=== PATIENT | female | born 1945 | race Caucasian/White ===

== ENCOUNTER → 2017-04-04 | Outpatient (CLI) | payer OTHER, BC ==
[~2017-04-04] MED LIST: ASPI81TA28 PO; CHOL100010 PO; FLUO10CA48 PO; GLC/500 PO; LISI-461 PO; MULT-506 PO; NRN/300 PO
[2017-04-04 12:54] LABS: BLOOD UREA NITROGEN 23 mg/dl (7-18); CREATININE 0.76 mg/dl (0.60-1.20)
== END | disposition home or self-care (01) ==
LOC: C.LABBFT 08:13
PROVIDERS: ATTEND Physician Assistant
DX: H91.8X1 Other specified hearing loss, right ear (principal)

== ENCOUNTER → 2017-04-06 | Outpatient (CLI) | payer OTHER, BC ==
[~2017-04-06] MED LIST changes: +GADAVIST IV PRN
--- NOTE | 2017-04-06 12:28 | DIAGNOSTIC IMAGING REPORT ---
BRAIN COMBO FOR IAC CLINICAL HISTORY: Right-sided asymmetrical sensorineural hearing loss. COMPARISON STUDY: No previous studies for comparison. TECHNIQUE: Utilizing a 0.7 Faye open magnet, multiplanar, multi echo imaging of the brain was performed with thin cut imaging through the internal auditory canals pre and post contrast administration. Injection of 8 cc of Gadavist IV was uneventful. FINDINGS: There are no areas of restricted diffusion. No acute intracranial hemorrhage, midline shift or mass effect is present. Brain volume is normal for age. Ventricular system is normal. Basilar cisterns are patent. Flow-voids for the major intracranial vessels are present. There is no intracranial masses or pathologic enhancement. There are no abnormalities within the internal auditory canals. Semicircular canals appear intact. There is no fluid within the mastoid air cells. There is a mucous retention cyst within the right maxillary sinus. Mild white matter T2 hyperintense foci suggest small vessel disease. Calvarial signal is normal. IMPRESSION: 1. No acute intracranial findings. 2. No abnormalities within the internal auditory canals. 3. No intracranial masses or pathologic enhancement. 4. Mild small vessel disease. Electronically signed by: Joey Wei M.D. 04/06/2017 12:27 PM Dictated Date/Time: 04/06/2017 12:23 PM
== END | disposition home or self-care (01) ==
LOC: C.OPENMRI 10:50
PROVIDERS: ATTEND Physician Assistant
DX: H91.8X1 Other specified hearing loss, right ear (principal)

== ENCOUNTER → 2017-04-28 | Outpatient (CLI) | payer OTHER, BC ==
[~2017-04-28] MED LIST changes: -GADAVIST IV PRN
[2017-04-28 12:22] LABS: ESTIMATED AVERAGE GLUCOSE 157 mg/dl; HA1C FLAG Normal (Normal)
[2017-04-28 12:37] LABS: CALCIUM 9.5 mg/dl (8.5-10.1)
[2017-04-28 12:40] LABS: ALT/SGPT 31 U/L (12-78); BLOOD UREA NITROGEN 30 mg/dl (7-18); BUN/CREATININE RATIO 39.3 (10-20); CARBON DIOXIDE 25 mmol/L (21-32); CHLORIDE 104 mmol/L (98-107); CHOLESTEROL 132 mg/dl (0-200); CREATININE 0.76 mg/dl (0.60-1.20); GLUCOSE 160 mg/dl (70-99); POTASSIUM 4.7 mmol/L (3.5-5.1); SODIUM 139 mmol/L (136-145); TRIGLYCERIDES 211 mg/dl (0-150); VERY LOW DENSITY LIPOPROT CALC 42 mg/dl
[2017-04-28 12:44] LABS: ALB/GLOB RATIO 1.1 (0.9-2); ALKALINE PHOSPHATASE 62 U/L (45-117); AST/SGOT 18 U/L (15-37); CHOLESTEROL/HDL RATIO 3.4; HDL CHOLESTEROL 39 mg/dl; LDL CHOLESTEROL CALCULATED 51 mg/dl
== END | disposition home or self-care (01) ==
LOC: C.LABBFT 08:06
PROVIDERS: ATTEND Family Medicine
DX: E11.9 Type 2 diabetes mellitus without complications (principal)

== ENCOUNTER → 2017-08-02 | Outpatient (CLI) | payer OTHER, BC ==
[~2017-08-02] MED LIST changes: -FLUO10CA48 PO; -LISI-461 PO
--- NOTE | 2017-08-02 08:23 | DIAGNOSTIC IMAGING REPORT ---
RIGHT PELVIS UNILATERAL HIP 1 VIEW CLINICAL HISTORY: RIGHT HIP PAIN Right COMPARISON STUDY: None. FINDINGS: No fracture or dislocation within the pelvis or hips. The visual signal appears intact. Cartilage spaces are maintained for age. Soft tissues are unremarkable. IMPRESSION: No fracture or dislocation within the pelvis or hips. Electronically signed by: Salvatore Wetzel M.D. 08/02/2017 8:21 AM Dictated Date/Time: 08/02/2017 8:18 AM
== END | disposition home or self-care (01) ==
LOC: C.RDSM 08:30
PROVIDERS: ATTEND Physician Assistant
DX: R52 Pain, unspecified (principal)

== ENCOUNTER → 2017-08-30 | Outpatient (CLI) | payer OTHER, BC ==
--- NOTE | 2017-08-30 11:49 | DIAGNOSTIC IMAGING REPORT ---
LUMBAR SPINE MIN 4 VIEWS HISTORY: 72 years-old Female LBP chronic low back pain with radicular symptoms. No reported trauma. COMPARISON: Lumbar spine MRI 01/06/2010 TECHNIQUE: 5 views of the lumbar spine FINDINGS: There is mild convex left curvature of the lumbar spine. There are 5 lumbar-type vertebral segments present. The bones are mildly demineralized. No acute compression deformity, acute fracture or subluxation identified. Moderate to severe intervertebral disc space narrowing is noted at L4-L5, L2-L3 and T11-T12, progressed from prior study dated 01/06/2010. Additional multilevel intervertebral disc space narrowing, endplate spurring and facet arthropathy is noted. Severe facet arthrosis involves the lower lumbar spine. There is atherosclerosis of the aorta. Soft tissues are unremarkable. IMPRESSION: 1. No acute fracture or subluxation of the lumbar spine. 2. Progressive degenerative changes about the lower lumbar spine as above with severe lower lumbar spine facet arthropathy and multilevel intervertebral disc space narrowing. The above report was generated using voice recognition software. It may contain grammatical, syntax or spelling errors. Electronically signed by: Spencer Little M.D. 08/30/2017 11:48 AM Dictated Date/Time: 08/30/2017 11:45 AM
== END | disposition home or self-care (01) ==
LOC: C.RDSM 10:32
PROVIDERS: ATTEND Physician Assistant
DX: M53.3 Sacrococcygeal disorders, not elsewhere classified (principal); M54.17 Radiculopathy, lumbosacral region; M51.36 Other intervertebral disc degeneration, lumbar region; M12.9 Arthropathy, unspecified

== ENCOUNTER → 2017-10-07 | Outpatient (CLI) | payer OTHER, BC ==
[2017-10-07 16:43] LABS: BASO % 0.4 %; BASO ABS # 0.04 K/uL (0-0.2); COMPLETE YES; EOS % 2.3 %; HEMATOCRIT 41.6 % (37-47); IG% 0.1 %; LYMPH % 26.3 %; LYMPH ABS # 2.43 K/uL (1.2-3.4); MEAN CELL VOLUME 87.8 fL (80-100); MEAN CORPUSCULAR HEMOGLOBIN 29.1 pg (25-34); MEAN CORPUSCULAR HGB CONC 33.2 g/dl (32-36); MEAN PLATELET VOLUME 9.5 fL (7.4-10.4); NEUT % 65.9 %; PLATELET COUNT 710 K/uL (130-400); RED BLOOD COUNT 4.74 M/uL (4.2-5.4); WHITE BLOOD COUNT 9.23 K/uL (4.8-10.8)
[2017-10-07 17:20] LABS: BLOOD UREA NITROGEN 17 mg/dl (7-18); CARBON DIOXIDE 24 mmol/L (21-32); CHLORIDE 109 mmol/L (98-107); CREATININE 0.72 mg/dl (0.60-1.20); GLUCOSE 123 mg/dl (70-99); POTASSIUM 4.8 mmol/L (3.5-5.1); SODIUM 137 mmol/L (136-145)
== END | disposition home or self-care (01) ==
LOC: C.LABBFT 15:10
PROVIDERS: ATTEND Internal Medicine
DX: Z00.00 Encounter for general adult medical examination without abnormal findings (principal); I10 Essential (primary) hypertension; D47.3 Essential (hemorrhagic) thrombocythemia

== ENCOUNTER 2017-10-17 21:14 | Emergency (ER) | payer OTHER, BC ==
[~2017-10-17] VITALS: Ht 162.6 cm; Wt 81.2 kg
[2017-10-17 21:19] VITALS: TEMP 36.8; Ht 162.6 cm; Wt 81.2 kg
[2017-10-17] MEDS ORDERED: GI COCKTAIL PO STA (21:40)
[2017-10-17] MEDS ORDERED: LORAZEPAM 1 MG TAB PO STA (21:40)
--- NOTE | 2017-10-17 21:40 | EMERGENCY ROOM VISIT NOTE ---
History Report prepared by Sai: Ashok York Under the Supervision of: Dr. Agustin Jensen M.D. First contact with patient: 21:25 Chief Complaint: NAUSEA Stated Complaint: NAUSEA,BURNING CHEST Nursing Triage Summary: pt reports feeling nauseated since eating dinner , reports after resting nausea remains and now has a burning sensation in chest recent dx of low platlets History of Present Illness The patient is a 72 year old female with a past medical history of increased platelets, anxiety, and type II diabetes, who presents to the ED with a cc of constant chest pain beginning a few hours ago. Positive for nausea and SOB. Negative for leg swelling, vomiting, and long recent travel. The patient states that she began feeling nauseous after eating a dinner of chicken salad and potatoes. She notes that after eating, she reclined in a chair and napped for a half hour. When she woke up, she reports feeling like the inside of her chest was burning and on fire. She notes that after she woke up, she had an anxiety attack. She denies any previous history of heart and lung problems. She reports that she did not take any medication at home, but states that her symptoms have improved slightly. Source of History: patient Onset: a few hour ago Position: chest Quality: burning Timing: constant Associated Symptoms: + SOB, + nausea, No vomiting Note: She denies any leg swelling. Review of Systems See HPI for pertinent positives and negatives. A total of ten systems were reviewed and were otherwise negative. Past Medical & Surgical Medical Problems: (1) Anxiety (2) Increased platelet count (3) Type 2 diabetes mellitus Family History No pertinent family history stated. Social History Smoking Status: Never Smoker Marital Status: Occupation Status: retired Current/Historical Medications Scheduled Cholecalciferol (Vitamin D), 2,000 INTER.UNIT PO DAILY Fluoxetine (Prozac), 10 MG PO DAILY Gabapentin (Neurontin), 300 MG PO TID Lisinopril (Zestril), 10 MG PO DAILY Metformin Hcl (Glucophage), 500 MG PO BID Multivitamin (Multivitamin), 1 TAB PO DAILY Allergies Coded Allergies: No Known Allergies (Verified , 12/25/14) Physical Exam Vital Signs Date Time Temp Pulse Resp B/P (MAP) Pulse Ox O2 Delivery O2 Flow Rate FiO2 10/18/17 00:15 94 Room Air 10/18/17 00:14 98 24 10/18/17 00:01 148/90 10/17/17 23:14 91 16 93 10/17/17 23:01 132/84 10/17/17 22:32 125/72 10/17/17 22:14 94 13 10/17/17 22:08 96 10/17/17 22:06 95 18 151/82 95 Room Air 10/17/17 22:02 151/82 10/17/17 21:45 95 Room Air 10/17/17 21:19 36.8 121 20 197/95 97 Room Air Physical Exam GENERAL: Awake, alert, well-appearing, NAD HENT: Normocephalic, atraumatic. EYES: Normal conjunctiva. Sclera non-icteric. NECK: Supple. No nuchal rigidity. FROM. RESPIRATORY: CTAB, no rhonchi, wheezing, crackles CARDIAC: Tachycardic and irregular, no MRG CHEST: No reproducible chest wall tenderness to palpation. ABDOMEN: Soft, NTND, BS+ LOWER EXTREMITIES: No calf pain, negative Mancini's sign. MSK: No chest wall TTP, no LE edema NEURO: GCS 15, CN 2-12 intact, moves all 4s on command SKIN: No rash or jaundice noted. Medical Decision & Procedures ER Provider Diagnostic Interpretation: Radiology results as stated below per my review and radiologist interpretation: CHEST ONE VIEW PORTABLE FINDINGS: The bones soft tissues and hemidiaphragms are normal. The cardiomediastinal silhouette is normal. The lungs are clear. The pulmonary vasculature is normal. IMPRESSION: Negative chest. The above report was generated using voice recognition software. It may contain grammatical, syntax or spelling errors. Electronically signed by: Torey Higuera M.D. 10/17/2017 10:01 PM Laboratory Results 10/17/17 21:47 Red Blood Count 4.57, Mean Corpuscular Volume 87.7, Mean Corpuscular Hemoglobin 29.5, Mean Corpuscular Hemoglobin Concent 33.7, Mean Platelet Volume 9.4, Neutrophils (%) (Auto) 64.2, Lymphocytes (%) (Auto) 25.8, Monocytes (%) (Auto) 6.4, Eosinophils (%) (Auto) 2.8, Basophils (%) (Auto) 0.5, Neutrophils # (Auto) 6.38, Lymphocytes # (Auto) 2.57, Monocytes # (Auto) 0.64, Eosinophils # (Auto) 0.28, Basophils # (Auto) 0.05 10/17/17 21:47 Test 10/17/17 21:47 10/17/17 23:59 White Blood Count 9.95 K/uL (4.8-10.8) Red Blood Count 4.57 M/uL (4.2-5.4) Hemoglobin 13.5 g/dL (12.0-16.0) Hematocrit 40.1 % (37-47) Mean Corpuscular Volume 87.7 fL (80-100) Mean Corpuscular Hemoglobin 29.5 pg (25-34) Mean Corpuscular Hemoglobin Concent 33.7 g/dl (32-36) Platelet Count 609 K/uL (130-400) Mean Platelet Volume 9.4 fL (7.4-10.4) Neutrophils (%) (Auto) 64.2 % Lymphocytes (%) (Auto) 25.8 % Monocytes (%) (Auto) 6.4 % Eosinophils (%) (Auto) 2.8 % Basophils (%) (Auto) 0.5 % Neutrophils # (Auto) 6.38 K/uL (1.4-6.5) Lymphocytes # (Auto) 2.57 K/uL (1.2-3.4) Monocytes # (Auto) 0.64 K/uL (0.11-0.59) Eosinophils # (Auto) 0.28 K/uL (0-0.5) Basophils # (Auto) 0.05 K/uL (0-0.2) RDW Standard Deviation 42.5 fL (36.4-46.3) RDW Coefficient of Variation 13.2 % (11.5-14.5) Immature Granulocyte % (Auto) 0.3 % Immature Granulocyte # (Auto) 0.03 K/uL (0.00-0.02) Prothrombin Time 10.5 SECONDS (9.0-12.0) Prothromb Time International Ratio 1.0 (0.9-1.1) Activated Partial Thromboplast Time 29.9 SECONDS (21.0-31.0) Partial Thromboplastin Ratio 1.2 Anion Gap 12.0 mmol/L (3-11) Est Creatinine Clear Calc Drug Dose 50.9 ml/min Estimated GFR () 64.3 Estimated GFR (Non- 55.5 BUN/Creatinine Ratio 26.7 (10-20) Calcium Level 9.1 mg/dl (8.5-10.1) Total Bilirubin 0.6 mg/dl (0.2-1) Direct Bilirubin 0.1 mg/dl (0-0.2) Aspartate Amino Transf (AST/SGOT) 13 U/L (15-37) Alanine Aminotransferase (ALT/SGPT) 23 U/L (12-78) Alkaline Phosphatase 64 U/L (45-117) Total Protein 6.8 gm/dl (6.4-8.2) Albumin 3.7 gm/dl (3.4-5.0) Lipase 46 U/L (73-393) Troponin I < 0.015 ng/ml (0-0.045) Laboratory results reviewed by me Medications Administered Medications (Trade) Dose Ordered Sig/Sheri Route Start Time Stop Time Status Last Admin Dose Admin Lorazepam (Ativan Tab) 1 mg NOW STAT PO 10/17/17 21:40 10/17/17 21:42 DC 10/17/17 21:58 1 MG Famotidine (Pepcid Tab) 20 mg NOW ONCE PO 10/17/17 21:45 10/17/17 21:46 DC 10/17/17 21:58 20 MG Ondansetron HCl (Zofran Inj) 4 mg NOW STAT IV 10/17/17 21:45 10/17/17 21:46 DC 10/17/17 21:57 4 MG Lidocaine HCl (Viscous Lidocaine 2% Soln) 20 ml STK-MED ONCE .ROUTE 10/17/17 21:53 10/17/17 21:54 DC 10/17/17 21:57 20 ML Al Hydroxide/Mg Hydroxide (Maalox Susp) 30 ml STK-MED ONCE .ROUTE 10/17/17 21:54 10/17/17 21:55 DC 10/17/17 21:57 30 ML ECG Indication: nausea Rate (beats per minute): 115 Rhythm: sinus tachycardia Findings: no ectopy, other (Normal intervals, normal axis, no STS or TWI) ED Course 2129: The patient was evaluated in room C7. A complete history and physical exam was performed. 2233: I reevaluated and updated the patient. She feels better and is good with the treatment plan. 0045: I reevaluated the patient. Discussed results and discharge instructions: She verbalized understanding and agreement. The patient is ready for discharge. Medical Decision The patient is a 72 year old female with a past medical history of increased platelets, anxiety, and type II diabetes, who presents to the ED with a cc of constant chest pain beginning a few hours ago. Positive for nausea and SOB. Negative for leg swelling, vomiting, and long recent travel. Differential diagnosis: Etiologies such as cardiac ischemia, aortic dissection, pulmonary embolism, pneumonia, pneumothorax, musculoskeletal, infections, pericarditis, myocarditis , esophageal rupture, gastrointestinal, as well as others were entertained. Patient was seen and evaluated the bedside. The patient she said some nausea meds been ongoing since she was napping after eating this evening. Patient states that she was in a reclined position but not fully flat she was in a reclining chair. Patient does complain of some shortness of breath she states she believes is related to her anxiety she is very worried about her recent diagnosis of thrombocytosis for which she takes a baby aspirin. Patient's chest pain is described as burning and does not radiate does not have any associated nausea or vomiting. It is not exertional in nature. Patient does not have any prior history of DC or lung disease. Patient denies history of DVT or PE. No recent plane or car travel. Patient has no lower extremity swelling or pain. Patient did have blood work, EKG, troponin, chest x-ray and symptomatically treatment. I did reassess the patient and her tachycardia completely resolved without any fluids. Given this and her history and physical even though she does have a Wells of 1 this was to make her very low risk for PE and do not believe it is warranted given there is likely an anxiety component. Patient's EKG is nonischemic and her present history of chest pain is not very concerning. However, given her age and the possibility of atypical type symptoms she did have a repeat troponin that was drawn 4 hours after symptoms. Patient states that her burning chest pain had resolved. Her repeat troponin was negative. Patient was able to walk without any exertional chest pain. Patient was given strict follow-up and return precautions. Patient was agreeable and amenable to outpatient follow-up and treatment. All cautions were answered. Patient was given strict follow-up, discharge, and return precautions. All questions were answered. Patient was deemed suitable for outpatient follow-up at this time. Patient agreed with the plan of care and was safely discharged home. Medication Reconcilliation Current Medication List: was personally reviewed by me Blood Pressure Screening Patient's blood pressure: Elevated blood pressure Blood pressure disposition: Elevated BP felt to be situational Impression Primary Impression: Anxiety Additional Impressions: Increased platelet count GERD (gastroesophageal reflux disease) Chest pain, unspecified Scribe Attestation The scribe's documentation has been prepared under my direction and personally reviewed by me in its entirety. I confirm that the note above accurately reflects all work, treatment, procedures, and medical decision making performed by me. Departure Information Dispostion Home / Self-Care Referrals Amanda Tracy D.O. (PCP) Forms HOME CARE DOCUMENTATION FORM, IMPORTANT VISIT INFORMATION Patient Instructions Anxiety Body Response, Anxiety Disorder, ED GERD, My [facility] Additional Instructions Please return to the emergency department if you have worsening or recurrent symptoms not amenable to at-home treatment. Please call for a follow-up appointment with her primary care physician. Please take your medications as prescribed. If you have other concerns and/or complaints please feel free to also call your primary care physician's office or return the ED for further evaluation, management, and treatment. You may take 400 mg Ibuprofen every 6 hours as needed for pain with food for no more than 2 consecutive days. You may take tylenol 650 mg every 6 hours as needed for pain. You may take motrin and tylenol separately or at the same time. Take your medications as prescribed. You have been examined and treated today on an emergency basis only. This is not a substitute for, or an effort to provide, complete comprehensive medical care. It is impossible to recognize and treat all injuries or illnesses in a single emergency department visit. It is therefore important that you follow up closely with [facility], your PCP, and/or your specialist(s). Call as soon as possible for an appointment. Thank you for your time and consideration. I look forward to speaking with you again soon. Please don't hesitate to call us if you have any questions. Problem Qualifiers Additional Impressions: GERD (gastroesophageal reflux disease) Esophagitis presence: esophagitis presence not specified Qualified Codes: K21.9 - Gastro-esophageal reflux disease without esophagitis
[2017-10-17 21:45] VITALS: O2SAT 95
[2017-10-17] MEDS ORDERED: FAMOTIDINE 20 MG TAB PO ONE (21:45)
[2017-10-17] MEDS ORDERED: ONDANSETRON INJ 2 MG/ML 2 ML VIAL IV STA (21:45)
[2017-10-17] MEDS ORDERED: LIDOCAINE HCL 2% VISC SOLN 20 ML UDC ONE (21:53)
[2017-10-17] MEDS ORDERED: ALUMINUM/MAGNESIUM SUSP 30 ML UDC ONE (21:54)
--- NOTE | 2017-10-17 22:02 | DIAGNOSTIC IMAGING REPORT ---
CHEST ONE VIEW PORTABLE CLINICAL HISTORY: CHEST PAIN dyspnea COMPARISON STUDY: 07/24/2013 FINDINGS: The bones soft tissues and hemidiaphragms are normal. The cardiomediastinal silhouette is normal. The lungs are clear. The pulmonary vasculature is normal. IMPRESSION: Negative chest. The above report was generated using voice recognition software. It may contain grammatical, syntax or spelling errors. Electronically signed by: Torey Higuera M.D. 10/17/2017 10:01 PM Dictated Date/Time: 10/17/2017 10:00 PM
[2017-10-17 22:03] LABS: BASO % 0.5 %; BASO ABS # 0.05 K/uL (0-0.2); COMPLETE YES; EOS % 2.8 %; HEMATOCRIT 40.1 % (37-47); IG% 0.3 %; LYMPH % 25.8 %; LYMPH ABS # 2.57 K/uL (1.2-3.4); MEAN CELL VOLUME 87.7 fL (80-100); MEAN CORPUSCULAR HEMOGLOBIN 29.5 pg (25-34); MEAN CORPUSCULAR HGB CONC 33.7 g/dl (32-36); MEAN PLATELET VOLUME 9.4 fL (7.4-10.4); MONO % 6.4 %; NEUT % 64.2 %; PLATELET COUNT 609 K/uL (130-400); RED BLOOD COUNT 4.57 M/uL (4.2-5.4); WHITE BLOOD COUNT 9.95 K/uL (4.8-10.8)
[2017-10-17] MEDS ORDERED: LISI-461 PO (22:08)
[2017-10-17] MEDS ORDERED: FLUO10CA48 PO (22:10)
[2017-10-17 22:13] LABS: PARTIAL THROMBOPLASTIN RATIO 1.2; PROTHROMBIN TIME (PATIENT) 10.5 SECONDS (9.0-12.0)
[2017-10-17 22:19] LABS: ALT/SGPT 23 U/L (12-78); AST/SGOT 13 U/L (15-37); BLOOD UREA NITROGEN 27 mg/dl (7-18); BUN/CREATININE RATIO 26.7 (10-20); CALCIUM 9.1 mg/dl (8.5-10.1); CARBON DIOXIDE 22 mmol/L (21-32); CHLORIDE 100 mmol/L (98-107); GLUCOSE 181 mg/dl (70-99); POTASSIUM 4.5 mmol/L (3.5-5.1); SODIUM 134 mmol/L (136-145)
[2017-10-17 22:23] LABS: ALKALINE PHOSPHATASE 64 U/L (45-117)
[2017-10-18 00:49] VITALS: BP 125/88; PULSE 94; O2SAT 98
== END 2017-10-18 00:51 | disposition home or self-care (01) ==
LOC: C.EDB 21:16 → C.EDC 10-18 00:51
DX: F41.9 Anxiety disorder, unspecified (principal); D47.3 Essential (hemorrhagic) thrombocythemia; K21.9 Gastro-esophageal reflux disease without esophagitis; R07.9 Chest pain, unspecified; E11.9 Type 2 diabetes mellitus without complications; Z79.4 Long term (current) use of insulin; Z79.899 Other long term (current) drug therapy

== ENCOUNTER → 2018-02-06 | Outpatient (CLI) | payer OTHER, BC ==
[~2018-02-06] MED LIST changes: -ASPI81TA28 PO; +FLUO10CA48 PO; +LISI-461 PO
--- NOTE | 2018-02-06 11:12 | DIAGNOSTIC IMAGING REPORT ---
R FOOT MIN 3 VIEWS CLINICAL HISTORY: PLANTAR PAIN 1ST MTP pain COMPARISON: None. DISCUSSION: The bones and joint spaces appear intact. There is no evidence of fracture, dislocation or bony disease. There is no evidence for soft tissue swelling. IMPRESSION: Negative study. The above report was generated using voice recognition software. It may contain grammatical, syntax or spelling errors. Electronically signed by: Torey Higuera M.D. 02/06/2018 11:10 AM Dictated Date/Time: 02/06/2018 11:09 AM
== END | disposition home or self-care (01) ==
LOC: C.RDSM 09:50
PROVIDERS: ATTEND Physician Assistant
DX: M79.674 Pain in right toe(s) (principal)

== ENCOUNTER → 2018-02-27 | Outpatient (CLI) | payer OTHER, BC ==
--- NOTE | 2018-02-28 07:47 | MAMMOGRAPHY REPORT ---
BILATERAL DIGITAL SCREENING MAMMOGRAM TOMOSYNTHESIS WITH CAD: 02/27/2018 CLINICAL HISTORY: Routine screening. TECHNIQUE: Breast tomosynthesis in addition to standard 2D mammography was performed. Current study was also evaluated with a Computer Aided Detection (CAD) system. COMPARISON: Comparison is made to exams dated: 10/11/2016 mammogram, 10/08/2015 mammogram, 4 mammogram, 10/04/2013 mammogram, 10/03/2012 mammogram, and 09/27/2011 mammogram - [facility]. BREAST COMPOSITION: There are scattered areas of fibroglandular density in both breasts. FINDINGS: There are mild vascular calcifications in both breasts. No suspicious mass, architectural distortion or cluster of microcalcifications is seen. IMPRESSION: ACR BI-RADS CATEGORY 2: BENIGN There is no mammographic evidence of malignancy. A 1 year screening mammogram is recommended. The pa tient will receive written notification of the results. Approximately 10% of breast cancers are not detected with mammography. A negative mammographic report should not delay biopsy if a clinically suggestive mass is present. Megan Matthews M.D. ay/:02/27/2018 15:09:59 Cloth Opener Hand: Anuradha BURR(Gaurav)([place]), [facility] letter sent: Normal 1/2 BI-RADS Code: ACR BI-RADS Category 2: Benign
== END | disposition home or self-care (01) ==
LOC: C.MAMM 14:03
PROVIDERS: ATTEND Internal Medicine
DX: Z12.31 Encounter for screening mammogram for malignant neoplasm of breast (principal)

== ENCOUNTER → 2018-04-05 | Outpatient (CLI) | payer OTHER, BC ==
[~2018-04-05] MED LIST changes: +ASPCH81X PO; -CHOL100010 PO; +CHOL20009 PO; +CRS/10 PO; -FLUO10CA48 PO; +MELO-84 PO
[2018-04-05 12:25] LABS: ALBUMIN 3.6 gm/dl (3.4-5.0); ALT/SGPT 29 U/L (12-78); AST/SGOT 15 U/L (15-37); BLOOD UREA NITROGEN 30 mg/dl (7-18); CALCIUM 8.6 mg/dl (8.5-10.1); CARBON DIOXIDE 27 mmol/L (21-32); CREATININE 0.85 mg/dl (0.60-1.20); GLUCOSE 141 mg/dl (70-99); POTASSIUM 4.6 mmol/L (3.5-5.1); SODIUM 137 mmol/L (136-145)
[2018-04-05 12:26] LABS: HEMOGLOBIN A1C 6.9 % (4.5-5.6)
[2018-04-05 12:27] LABS: ALKALINE PHOSPHATASE 65 U/L (45-117); CHOLESTEROL 129 mg/dl (0-200); LDL CHOLESTEROL CALCULATED 62 mg/dl; TOTAL PROTEIN 6.8 gm/dl (6.4-8.2)
[2018-04-05 12:39] LABS: BASO % 0.6 %; BASO ABS # 0.04 K/uL (0-0.2); EOS % 3.2 %; EOS ABS # 0.23 K/uL (0-0.5); HEMATOCRIT 39.7 % (37-47); IG# 0.01 K/uL (0.00-0.02); LYMPH % 27.2 %; LYMPH ABS # 1.94 K/uL (1.2-3.4); MEAN CELL VOLUME 87.4 fL (80-100); MEAN CORPUSCULAR HEMOGLOBIN 28.6 pg (25-34); MEAN CORPUSCULAR HGB CONC 32.7 g/dl (32-36); MEAN PLATELET VOLUME 9.6 fL (7.4-10.4); MONO ABS # 0.43 K/uL (0.11-0.59); NEUT % 62.9 %; NEUT ABS # 4.48 K/uL (1.4-6.5); PLATELET COUNT 645 K/uL (130-400); RED CELL DISTRIBUTION WIDTH CV 13.9 % (11.5-14.5); RED CELL DISTRIBUTION WIDTH SD 44.3 fL (36.4-46.3); WHITE BLOOD COUNT 7.13 K/uL (4.8-10.8)
== END | disposition home or self-care (01) ==
LOC: C.LABBFT 09:32
PROVIDERS: ATTEND Internal Medicine Hematology & Oncology
DX: Z00.00 Encounter for general adult medical examination without abnormal findings (principal); D47.3 Essential (hemorrhagic) thrombocythemia; E11.9 Type 2 diabetes mellitus without complications; I10 Essential (primary) hypertension

== ENCOUNTER → 2018-04-12 | Day surgery (SDC) | payer OTHER, BC ==
[2018-03-24 13:07] VITALS: Ht 162.6 cm; Wt 79.5 kg
[~2018-04-12] VITALS: Ht 162.6 cm; Wt 79.5 kg
[~2018-04-12] MED LIST changes: +FENTANYL CITRATE INJ 50 MCG/1 ML 2 ML VIAL ONE; +IOPAMIDOL INJ 61% 15 ML VIAL ONE; +LIDOCAINE HCL 1% MPF 5 ML VIAL ONE; +SODIUM CHLORIDE 0.9% INJ 10 ML VIAL ONE
[2018-04-12 14:05] VITALS: TEMP 36.8
--- NOTE | 2018-04-12 14:28 | History & Physical Bridge - SC ---
H&P Re-Evaluation Bridge Note: I have examined the patient, reviewed the History & Physical and in the interval since the performance of the History & Physical I have noted the following changes of clinical significance: No changes noted
--- NOTE | 2018-04-12 14:55 | [facility] Post Operative Brief Note ---
Immediate Operative Summary Operative Date April 12, 2018. 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 Preeti KHOURY Insurance Loss Control Surveyor Surgeon(s) None Estimated Blood Loss O Findings Consistent with Post-Op Diagnosis Specimens NA Drains None Anesthesia Type Local Complication(s) none Disposition Disposition:
--- NOTE | 2018-04-12 14:56 | Discharge Instructions ---
Discharge Instructions Date of Service April 12, 2018. Visit Reason for Visit: Lumbar Spinal Stenosis Discharge Discharge Diagnosis / Problem: right leg pain Discharge Goals Goal(s): Decrease discomfort, Improve function Activity Recommendations Activity Limitations: resume your previous activity Anesthesia . Post Anesthesia Instructions: If you have had General Anesthesia or IV Sedation: * Do not drive today. * Resume driving when surgeon permits. * Do not make important decisions or sign legal documents today. * Call surgeon for: 1. Temperature elevations greater than 101 degrees F. 2. Uncontrollable pain. 3. Excessive bleeding. 4. Persistent nausea and vomiting. 5. Medication intolerance (nausea, vomiting or rash). * For nausea and vomiting use only clear liquids such as: tea, soda, bouillon until nausea subsides, then gradually increase diet as tolerated. * If you have any concerns or questions, call your surgeon's office. If physician is unavailable and it is an emergency, call 911 or go to the nearest emergency room. . Diet Recommendations Recommended Home Diet: resume previous diet Procedures Procedures Performed: LUMBAR EPIDURAL STEROID INJECTION Pending Studies Studies pending at discharge: no Medical Emergencies . Who to Call and When: Medical Emergencies: If at any time you feel your situation is an emergency, please call 911 immediately. . Non-Emergent Contact Non-Emergency issues call your: Specialist . . "Provider Documentation" section prepared by Laron Grey. .
[2018-04-12 15:17] VITALS: BP 158/94; PULSE 111; O2SAT 98
--- NOTE | 2018-04-12 16:05 | OPERATIVE REPORT ---
DATE OF OPERATION: 04/12/2018 PREOPERATIVE DIAGNOSIS: Multifactorial L3-L4 stenosis and L2-L3 stenosis with right lower extremity radiculopathy. POSTOPERATIVE DIAGNOSIS: Same. PROCEDURE: Right paramedian L2-L3 interlaminar epidural steroid injection under fluoroscopic guidance. INDICATIONS: The patient is a 73-year-old female who has had a right leg pain for a number of years. Her pain starts across the lower back, radiates down the right leg. She has multifactorial stenoses at L2-L3 and L3-L4, complete fusion at L5-S1, and a prior disk desiccation at L4-L5. She presents today for an epidural injection to provide her with relief. PHYSICAL EXAMINATION: GENERAL: Pleasant female, seated comfortably, in no apparent distress. MUSCULOSKELETAL: She has no issues with extension. Normal lower extremity strength. Negative seated straight leg raises. Subjectively decreased sensation in the right S1 dermatomal distribution. CONSENT: Verbal and written consents were obtained from the patient. Risks and benefits reviewed. Risks include but are not limited to epidural abscess, epidural hematoma, allergic reaction, and dural puncture. The patient wishes to proceed. DESCRIPTION OF PROCEDURE: The patient was taken back to the special procedures room of the [facility]. She was maintained in a prone position. Backside was cleansed with Betadine x3, and a dry sterile dressing was applied. Fluoroscope was used to identify the L2-L3 interlaminar space, and overlying skin on the right side was anesthetized with 4 mL of lidocaine 1% with a 25 gauge 1-1/2-inch needle. A 22-gauge 3-1/2 inch Tuohy needle was then directed toward the interlaminar space. It was advanced under lateral fluoroscopic guidance. Loss of resistance was noted at a depth of 7 cm. Isovue-300 contrast 1 mL was injected which demonstrated epidural uptake pattern at the L3-L4 area. She then underwent injection after negative aspiration of 40 mg of Depo-Medrol and 4 mL of preservative free sodium chloride. Injection was well tolerated. DISPOSITION: 1. The patient was taken out in the discharge recovery area. She will be discharged home once discharge criteria met. 2. Follow up in the [facility] office in 4 weeks' time. I attest to the content of the Intraoperative Record and any orders documented therein. Any exception s are noted below.
== END | disposition home or self-care (01) ==
LOC: X.SURG 13:56
PROVIDERS: ATTEND Physical Medicine & Rehabilitation
DX: M48.061 Spinal stenosis, lumbar region without neurogenic claudication (principal); E11.9 Type 2 diabetes mellitus without complications; Z79.899 Other long term (current) drug therapy; Z83.3 Family history of diabetes mellitus; Z90.710 Acquired absence of both cervix and uterus